=== PATIENT | male | born 1995 | race Caucasian/White ===

== ENCOUNTER 2016-09-29 21:09 | Emergency (ER) | payer OTHER ==
[~2016-09-29] VITALS: Ht 193 cm; Wt 88.5 kg
[~2016-09-29 21:09] MED LIST: HYDR-971 PO; LEVO500T59 PO; ONDA4TAB10 PO
--- NOTE | 2016-09-29 22:20 | PHYS DOC ---
General Chief Complaint: RECTAL BLEED Stated Complaint: BLOOD IN STOOL Time Seen by MD: 21:46 Source: patient Exam Limitations: no limitations Problems: History of Present Illness Initial Comments Pt is 21/M to ED c/o blood in stool. Pt states intermittently x 4mos he's had BRBPR. Pt usually has painful BM accompanying, denies rectal FB or h/o IBS. No travel or other stool changes, no bleeding disorder no BHAKTA/lightheaded/palpitation/pallor. No prearrival tx follows on Post. Timing/Duration: intermittent (4 mos) Severity: moderate Modifying Factors: improves with other Associated Symptoms: other Allergies: Coded Allergies: No Known Drug Allergies (Unverified , 08/25/15) Past Medical History Medical History: no pertinent history Surgical History: no surgical history Social History Smoker: non-smoker Alcohol: none Drugs: none Review of Systems Constitutional: denies chills, denies fever Respiratory: denies cough, denies shortness of breath Cardiovascular: denies chest pain, denies palpitations Gastrointestinal: see HPI, denies abdominal pain, denies diarrhea, denies nausea, denies vomiting Genitourinary: denies frequency, denies hematuria Musculoskeletal: denies back pain, denies joint swelling, denies neck pain Psychiatric/Neurological: denies headache, denies numbness, denies paresthesia Physical Exam General Appearance: WD/WN, no apparent distress Ear, Nose, Throat: hearing grossly normal, normal ENT inspection Neck: non-tender, supple Respiratory: normal breath sounds, no respiratory distress Cardiovascular: normal peripheral pulses, regular rate, rhythm Gastrointestinal: non tender, soft Rectal: normal rectal tone, heme positive stool, hemorrhoids (internal anteriorly) Back: no CVA tenderness, no vertebral tenderness Extremities: non-tender, normal inspection Neurologic/Psychiatric: sign letterer II-XII nml as tested, no motor/sensory deficits, alert, normal mood/affect, oriented x 3 Skin: normal color, warm/dry Orders, Labs, Meds stool heme + Departure Time of Disposition: 22:12 Disposition: 01 HOME, SELF-CARE Diagnosis: internal hemorrhoids, heme + stool Condition: STABLE Patient Instructions: Hemorrhoids Additional Instructions: Warm sitz baths for 15 minutes three times daily and after each BM. High fiber diet, 30g/day. 10-12 glasses water/day. OTC tylenol/ibuprofen and stool softeners as needed. Rx: analpram HC Avoid bearing down with BM and heavy lifting until doctor follow up. Follow up at [facility] for recheck and GI referral for colonoscopy. Return to ED with new or changing symptoms. DISHA ORTIZ DO September 29, 2016 22:20
[2016-09-29 22:36] LABS: FECAL OB PT POSITIVE (NEG)
[2016-09-29 22:50] VITALS: BP 125/65
== END 2016-09-29 22:55 | disposition home or self-care (01) ==
LOC: ER 21:09
DX: K64.8 Other hemorrhoids (principal); K92.1 Melena
CPT/HCPCS: 82274; 99283

== ENCOUNTER 2017-03-02 19:08 | Emergency (ER) | payer OTHER ==
[~2017-03-02] VITALS: Ht 193 cm; Wt 87.5 kg
--- NOTE | 2017-03-02 20:12 | ED.ADGEN ---
Past History Past Medical History: No Pertinent History Past Surgical History: No Surgical History Alcohol Use: None Drug Use: None Adult General Chief Complaint Chief Complaint " I was trying to play foot ball. and bottom part of leg keep going and the upper did not... now it hurt bend, or bear wt. Pain feels inside...of this right knee..." HPI HPI Patient is a 22 year old male who presents with above hx of injury to Rt. knee. Pt can do straight leg lift with pain. Generalized edema. Distal neurovascular intact. Pt. follow with [facility]. Review of Systems Review of Systems Constitutional: Denies fever or chills [] Eyes: Denies change in visual acuity, redness, or eye pain [] HENT: Denies nasal congestion or sore throat [] Respiratory: Denies cough or shortness of breath [] Cardiovascular: No additional information not addressed in HPI [] GI: Denies abdominal pain, nausea, vomiting, bloody stools or diarrhea [] : Denies dysuria or hematuria [] Musculoskeletal: Denies back pain or joint pain [] Integument: Denies rash or skin lesions [] Neurologic: Denies headache, focal weakness or sensory changes [] Endocrine: Denies polyuria or polydipsia [] Allergies Allergies Allergies Coded Allergies Type Severity Reaction Last Updated Verified No Known Drug Allergies 08/25/15 No Physical Exam Physical Exam Constitutional: Well developed, well nourished, no acute distress, non-toxic appearance. [] HENT: Normocephalic, atraumatic, bilateral external ears normal, oropharynx moist, no oral exudates, nose normal. [] Eyes: PERRLA, EOMI, conjunctiva normal, no discharge. [] Neck: Normal range of motion, no tenderness, supple, no stridor. [] Cardiovascular:Heart rate regular rhythm, no murmur [] Lungs & Thorax: Bilateral breath sounds clear to auscultation [] Abdomen: Bowel sounds normal, soft, no tenderness, no masses, no pulsatile masses. [] Skin: Warm, dry, no erythema, no rash. [] Back: No tenderness, no CVA tenderness. [] Extremities: No tenderness, no cyanosis, no clubbing, ROM intact, no edema. [] Neurologic: Alert and oriented X 3, normal motor function, normal sensory function, no focal deficits noted. [] Psychologic: Affect normal, judgement normal, mood normal. [] Current Patient Data Vital Signs Vital Signs Date Time Temp Pulse Resp B/P (MAP) Pulse Ox O2 Delivery O2 Flow Rate FiO2 03/02/17 19:20 100.0 67 18 98 EKG EKG [] Radiology/Procedures Radiology/Procedures [] Course & Med Decision Making Course & Med Decision Making Pertinent Labs and Imaging studies reviewed. (See chart for details) [] Final Impression Final Impression 1. AC/PC Strain vs Tear Rt. Knee 2. Sprain/Strain Rt Knee[] Problems: Dragon Disclaimer Dragon Disclaimer This electronic medical record was generated, in whole or in part, using a voice recognition dictation system. ROSA ISELA DE LA ROSA MD Mar 02, 2017 20:11
[2017-03-02] MEDS ORDERED: HYDR-79 PO (20:16)
[2017-03-02] MEDS ORDERED: IBUP400T18 PO (20:16)
[2017-03-02] MEDS ORDERED: KETOROLAC 60 MG/2 ML VIAL. IM ONE (20:30)
[2017-03-02] MEDS ORDERED: oxyCODONE/APAP 10/325 1 TAB TABLET PO ONE (20:30)
[2017-03-02 21:45] VITALS: BP 139/53
--- NOTE | 2017-03-03 10:29 | RAD ---
4 view right knee study History: Right knee injury while playing football. [place] a popping otherwise. Severe pain with difficulty straightening the right knee. Findings: No acute fracture or dislocation or osteolytic process is seen. There is no significant swelling of the suprapatellar bursa to indicate a joint effusion radiographically. The patella is normally aligned. IMPRESSION: No acute osseous abnormality is seen.
== END 2017-03-02 21:50 | disposition home or self-care (01) ==
LOC: ER 19:08
DX: S89.91XA Unspecified injury of right lower leg, initial encounter (principal); X58.XXXA Exposure to other specified factors, initial encounter; Y93.61 Activity, american tackle football; Y99.8 Other external cause status; Y92.89 Other specified places as the place of occurrence of the external cause
CPT/HCPCS: 29505; 73564; 96372; 99284; J1885

== ENCOUNTER 2021-05-29 16:44 | Emergency (ER) | payer OTHER ==
[~2021-05-29] VITALS: Ht 193 cm; Wt 93.2 kg
[~2021-05-29 16:44] MED LIST changes: +HYDR-1179 PO; +HYDR-3165 PO; -HYDR-971 PO; +IBUP400T18 PO
--- NOTE | 2021-05-29 20:25 | PHYS DOC ---
Past History Past Medical History: No Pertinent History Past Surgical History: Other Additional Past Surgical Histo: ACL repair on right knee Alcohol Use: Rarely Drug Use: None General Adult EDM: Chief Complaint: KNEE INJURY HPI: HPI: Patient is a [age] year old [sex] who presents with [] Review of Systems: Review of Systems: Constitutional: Denies fever or chills Eyes: Denies redness or eye pain HENT: Denies nasal congestion or sore throat Respiratory: Denies cough or shortness of breath Cardiovascular: Denies chest pain or palpitations GI: Denies abdominal pain, nausea, or vomiting : Denies dysuria or hematuria Musculoskeletal: Denies back pain or joint pain Integument: Denies rash or skin lesions Neurologic: Denies headache, focal weakness or sensory changes Complete systems were reviewed and found to be within normal limits, except as documented in this note. Allergies: Allergies: Allergies Coded Allergies Type Severity Reaction Last Updated Verified No Known Drug Allergies 05/29/21 No Physical Exam: PE: Constitutional: Well developed, well nourished, no acute distress, non-toxic appearance HENT: Normocephalic, atraumatic Eyes: PERRL, EOMI, conjunctiva normal, no discharge Neck: Normal range of motion, no tenderness, supple Lungs & Thorax: No respiratory distress, equal chest rise and fall Abdomen: Soft, no tenderness Skin: Warm, dry, no erythema, no rash Back: No tenderness, no CVA tenderness Extremities: No tenderness, ROM intact, no edema Neurologic: Alert and oriented X 3, normal motor function, normal sensory function, no focal deficits noted Psychologic: Affect normal, judgment normal Current Patient Data: Vital Signs: Vital Signs Date Time Temp Pulse Resp B/P (MAP) Pulse Ox O2 Delivery O2 Flow Rate FiO2 05/29/21 18:10 97.9 76 20 139/86 (103) 98 Room Air EKG: EKG: [] Radiology/Procedures: Radiology/Procedures: [] Heart Score: C/O Chest Pain: N/A Course & Med Decision Making: Course & Med Decision Making Pertinent Imaging studies reviewed. (See chart for details) Patient stable for discharge with outpatient follow-up with PCP/orthopedics/[facility]. Discussed findings and plan with patient, who acknowledges understanding and agreement. Ashley Disclaimer: Ashley Disclaimer: This electronic medical record was generated, in whole or in part, using a voice recognition dictation system. Splinting Splinting : Location: Left knee Pre-Made Type: Benny bandage Pre-Proc Neuro Vasc Exam: normal Post-Proc Neuro Vasc Exam: normal, unchanged from pre-exam Departure Departure: Impression: Primary Impression: Knee pain, acute Qualified Codes: M25.562 - Pain in left knee Disposition: 01 HOME / SELF CARE / HOMELESS Condition: STABLE Referrals: PCP,UNKNOWN (PCP) HAN BRICEÑO II, MD Patient Instructions: Crutch Use, [id number], Knee Pain, [id number], Knee Wraps (Elastic Bandage) and RICE Additional Instructions: Ice area 20 minutes on then leave off for next 20 minutes. Repeat several times daily for the next 2 days. Use [id number] ibuprofen and or Tylenol for pain or discomfort. ERROL GOVEA DO May 29, 2021 20:25
[2021-05-29 20:35] VITALS: BP 139/86
--- NOTE | 2021-05-29 21:14 | RAD ---
EXAM: XR KNEE _3 VIEWS_LT 05/29/2021 8:06 PM CLINICAL INDICATION: Pain COMPARISON: Right knee radiograph 03/02/2017 TECHNIQUE: AP, oblique, and lateral views of the right knee FINDINGS: No acute fracture. Alignment is normal. Joint spaces are maintained. No joint effusion or soft tissue abnormality. IMPRESSION: Normal radiograph of the right knee. Electronically signed by: Ana María Mejia MD (05/29/2021 9:12 PM) [id number]
== END 2021-05-29 20:40 | disposition home or self-care (01) ==
LOC: ER 16:44
DX: M25.562 Pain in left knee (principal)
CPT/HCPCS: 73562; 99283